=== PATIENT | male | born 1990 | race Hispanic/Latino ===

== ENCOUNTER 2024-12-11 10:07 | Emergency (ER) | payer OTHER ==
[2024-12-11] MEDS ORDERED: Tetracaine 0.5% PF 4 ML BOT ONE (10:17)
[2024-12-11] MEDS ORDERED: Fluorescein Opthalmic Strip ONE (10:17)
== END 2024-12-11 10:39 | disposition home or self-care (01) ==
LOC: NAV ERS 10:07
DX: S05.01XA Injury of conjunctiva and corneal abrasion without foreign body, right eye, initial encounter (principal); X58.XXXA Exposure to other specified factors, initial encounter
CPT/HCPCS: 99283